=== PATIENT | male | born 1945 | race Caucasian/White ===

== ENCOUNTER 2020-02-27 08:51 | Emergency (ER) | payer OTHER ==
[2020-02-27 08:55] VITALS: TEMP 99.3; BMI 28.5
--- OUTSIDE RECORDS SUMMARY | 2020-02-27 08:58 | XMS ---
:1945 Author Organization [facility] Support Name Relationship Address Phone SE Unavailable Unavailable Unavailable SUNITHA RAMOS [address] [place] [address] Re-disclosure Warning The records that you are about to access may contain information from federally- assisted alcohol or drug abuse programs. If such information is present, then the following federally mandated warning applies: This information has been disclosed to you from records protected by federal confidentiality rules (42 CFR part 2). The federal rules prohibit you from making any further disclosure of this information unless further disclosure is expressly permitted by the written consent of the person to whom it pertains or as otherwise permitted by 42 CFR part 2. A general authorization for the release of medical or other information is NOT sufficient for this purpose. The Federal rules restrict any use of the information to criminally investigate or prosecute any alcohol or drug abuse patient.The records that you are about to access may contain highly sensitive health information, the redisclosure of which is protected by Article 27-F of the [facility] Public Health law. If you continue you may haveaccess to information: Regarding HIV / AIDS; Provided by facilities licensed or operated by the [facility] Office of Mental Health; or Provided by the [facility] Office for People With Developmental Disabilities. If such information is present, then the following [facility] mandated warning applies: This information has been disclosed to you from confidential records which are protected by state law. State law prohibits you from making any further disclosure of this information without the specific written consent of the person to whom it pertains, or as otherwise permitted by law. Any unauthorized further disclosure in violation of state law may result in a fine or fci sentence or both. A general authorization for the release of medical or other information is NOT sufficient authorization for further disclosure. Insurance Providers Payer name Policy type Policy ID Covered Covered constitution party's Policy P shanna / Coverage constitution party ID relationship to [employer] type [employer] MEDIC[employer] [id number] SP [id number] A [facility] [id number] SP [id number]
--- NOTE | 2020-02-27 09:20 | PDOC ---
History of Present Illness - General Chief Complaint: Respiratory Stated Complaint: SOB History Source: Patient Exam Limitations: No Limitations - History of Present Illness Initial Comments: 02/27/20 09:13 74 yo M h/o HTN, HLD, cardiac stent p/w SOB x3 days. Patient states he was working out ~4-5 days ago and was pushing himself harder than usual and had a brief epsiode of chest tightness that resolved on its own. He reports some SOB that began the following day and only slightyl worsened the following day. States he also has a deviated septum so at times he gets significant nasal congestion that makes it difficult for him to breath so he is not sure if this is contributing to his symptoms since he did have resolution of symptoms when he felt his nasal congestion clear up but the SOB of returned when he got up to walk and felt like his nasal congestion returned. Denies any worsenign LE swell ing. States he did his eliptical workout since his symptoms started at a slightly less rigorous resistance and stated he didn't feel more SOB than usual. Denies cough, fevers or sick contacts. 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 Past History - Medical History Allergies/Adverse Reactions: Allergies Allergy/AdvReac Type Severity Reaction Status Date / Time No Known Allergies Allergy Verified 08/19/15 21:06 Home Medications: Ambulatory Orders Aspirin [ASA] 81 mg PO DAILY 09/04/12 Atorvastatin Ca [Lipitor] 20 mg PO DAILY 09/04/12 Metoprolol Tartrate [Lopressor] 50 mg PO DAILY 09/04/12 Cardiac Disorders: Yes (CORONARY STENT X 3) COPD: No HTN: Yes Hypercholesterolemia: Yes Kidney Stones: Yes - Surgical History Appendectomy: Yes (1967) Cardiac Surgery: Yes (STENT X 3) - Immunization History Immunization Up to Date: Yes - Psycho-Social/Smoking History Smoking Status: No Smoking History: Former smoker Have you smoked in the past 12 months: No Number of Cigarettes Smoked Daily: 0 If you are a former smoker, when did you quit?: 1984 Information on smoking cessation initiated: No - Substance Abuse Hx (Audit-C & DAST Scrn) How often the patient has a drink containing alcohol: Never Score: In Men: 4 or > Positive; In Women: 3 or > Positive: 0 Screen Result (Pos requires Nsg. Audit-10AR): Negative In the last yr the pt used illegal drug/Rx for NonMed reason: No Score: Yes response is considered Positive: 0 Screen Result (Positive result requires Nsg. DAST-10): Negative Review of Systems - Review of Systems Able to Perform ROS?: Yes Comments:: 02/27/20 09:20 GENERAL/CONSTITUTIONAL: No fever or chills. No weakness. HEAD, EYES, EARS, NOSE AND THROAT: No change in vision. No ear pain or discharge. No sore throat. CARDIOVASCULAR: as per HPI RESPIRATORY: No cough, wheezing, or hemoptysis. GASTROINTESTINAL: No nausea, vomiting, diarrhea or constipation. GENITOURINARY: No dysuria, frequency, or change in urination. MUSCULOSKELETAL: No joint or muscle swelling or pain. No neck or back pain. SKIN: No rash. NEUROLOGIC: No headache, vertigo, loss of consciousness, or change in strength/sensation. ENDOCRINE: No increased thirst. No abnormal weight change. HEMATOLOGIC/LYMPHATIC: No anemia, easy bleeding, or history of blood clots. ALLERGIC/IMMUNOLOGIC: No hives or skin allergy. *Physical Exam - Vital Signs Last Vital Signs Temp Pulse Resp BP Pulse Ox 99.3 F 69 18 177/88 H 99 02/27/20 08:52 02/27/20 08:52 02/27/20 08:52 02/27/20 08:52 02/27/20 08:52 - Physical Exam 02/27/20 09:21 GENERAL: Well appearing, in no acute distress HEENT: NCAT, conjunctiva not injected, MMM, EOMI NECK: Normal ROM, supple LUNGS: CTAB. Good air entry. No wheezes, No Rhonchi and no crackles HEART: RRR, + s1 s2 ABDOMEN: Soft, nontender, normoactive bowel sounds. No guarding, no rebound. No masses EXTREMITIES: Warm and well perfused. 1+ LE edema. FROM. No clubbing or cyanosis. No cords, erythema, or tenderness NEUROLOGICAL: Aox3, Speech fluent, face symmetric. Sensation grossly intact to light touch. Ambulatory with steady gait. Strength intact. No focal deficits. SKIN: Warm, dry, normal turgor, no rashes or lesions noted. Heart Score/ECG Review - ECG Impressions Comment:: 02/27/20 09:22 sinus, rate 56, normal intervals, no ST elevations ED Treatment Course - LABORATORY CBC & Chemistry Diagram: 02/27/20 09:20 02/27/20 09:20 - RADIOLOGY Radiology Studies Ordered: Category Date Time Status CHEST PA & LAT [RAD] Stat Radiology 02/27/20 09:10 Ordered Medical Decision Making - Medical Decision Making 02/27/20 09:23 74 yo M with reports of SOB, lungs clear on exam and EKG without ischemic change s however given cardiac history and report of episode of chest tightness on exertion prior to symptom onset will r/o ACS. Also possible SOB 2/2 nasal congestion and patient reports symptoms worsened when his nasal congestion worsened with the bad weather. Plan: -labs -cxr -reassess This clinical encounter is taking place during a federal and state health care emergency attributable to the novel Willis Virus pandemic. The [employer] of the Department of Health and Human Services has declared, pursuant to the Public Health Service Act 319F-3 (42 U.S.C. 247d-6d), that a covered persons activities related to medical countermeasures against COVID-19 will be immune from liability under Federal and State law. 02/27/20 13:46 CE's negative x2. Unable to reach patient's PMD/Decal Transferrer to help arrange for close follow up however massiel states he can call to arrange for f/u within the next few days. Will d/c with return precautions. Patient to f/u with his host/hostess restaurant/PMD. Discharge - Discharge Information Problems reviewed: Yes Clinical Impression/Diagnosis: Shortness of breath Condition: Stable Disposition: HOME - Admission No - Follow up/Referral - Patient Discharge Instructions Patient Printed Discharge Instructions: DI for Nasal Congestion Additional Instructions: Your labs and chest xray did not show any concerning findings. You should call to schedule a followup appointment with your PMD in the next 1-2 days. Return to the ED for new or worsening symptoms. - Post Discharge Activity
[2020-02-27 09:52] LABS: BASO % 1.7 % (0-2.0); EOS % 3.5 % (0-4.5); HEMATOCRIT 45.1 % (35.4-49); HEMOGLOBIN 15.6 GM/dl (11.7-16.9); LYMPH % 37.3 % (8-40); MCH 33.6 pg (25.7-33.7); MCHC 34.5 g/dl (32.0-35.9); MEAN CELL VOLUME 97.3 fl (80-96); MEAN PLT VOLUME 7.1 fl (7.5-11.1); MONO % 11.7 % (3.8-10.2); NEUT % 45.8 % (42.8-82.8); PLATELET COUNT 149 K/MM3 (134-434); RBC 4.64 M/mm3 (4.00-5.60); RDW 11.8 % (11.9-15.9); WHITE BLOOD COUNT 4.4 K/mm3 (4.0-10.8)
[2020-02-27 09:57] LABS: ACTIVATED PTT 28.3 SECONDS (25.2-36.5); ALBUMIN 4.3 g/dl (3.4-5.0); BILIRUBIN,TOTAL 0.9 mg/dl (0.2-1); CALCIUM 8.8 mg/dl (8.5-10); CREATININE 0.8 mg/dl (0.55-1.3); POTASSIUM 3.5 mmol/L (3.5-5.1); TOT PROT 6.7 g/dl (6.4-8.2)
[2020-02-27 10:02] LABS: INR 1.16 (0.82-1.09); PROTHROMBIN TIME (PATIENT) 12.9 SEC (10.2-13.0)
[2020-02-27 13:53] VITALS: BP 141/77; PULSE 59
--- NOTE | 2020-02-27 14:40 | EKG ---
Test Reason : Blood Pressure : / mmHG Vent. Rate : 056 BPM Atrial Rate : 056 BPM P-R Int : 170 ms QRS Dur : 092 ms QT Int : 428 ms P-R-T Axes : 037 041 013 degrees QTc Int : 413 ms SINUS BRADYCARDIA LEFT VENTRICULAR HYPERTROPHY WITH REPOLARIZATION ABNORMALITY ABNORMAL ECG NO PREVIOUS ECGS AVAILABLE Confirmed by MD ALLYSON, FUNMILAYO ([id number]) on 02/27/2020 2:39:49 PM Referred By: Confirmed By:FUNMILAYO VALADEZ MD
== END 2020-02-27 13:55 | disposition home or self-care (01) ==
LOC: FER 08:51
DX: R06.02 Shortness of breath (principal)
CPT/HCPCS: 36415; 71046-TC-FY; 80053; 84484; 85025; 85610; 85730; 93005; 99285-25

== ENCOUNTER 2021-03-08 14:12 | Emergency (ER) | payer OTHER ==
[2021-03-08 14:20] VITALS: BP 174/77; PULSE 74; TEMP 99; BMI 23.7
== END 2021-03-08 16:19 | disposition home or self-care (01) ==
LOC: FER 14:12
DX: S09.90XA Unspecified injury of head, initial encounter (principal); V43.52XA Car driver injured in collision with other type car in traffic accident, initial encounter
CPT/HCPCS: 70450-TC; 72125-TC; 99284-25

== ENCOUNTER 2024-07-10 08:31 | Emergency (ER) | payer OTHER ==
[2024-07-10 08:41] VITALS: BP 184/77; PULSE 65; RESP 18; TEMP 98.6; BMI 28.8
== END 2024-07-10 11:31 | disposition home or self-care (01) ==
LOC: FER 08:31
DX: S09.90XA Unspecified injury of head, initial encounter (principal); W20.8XXA Other cause of strike by thrown, projected or falling object, initial encounter
CPT/HCPCS: 70450-TC; 99284-25